=== PATIENT | female | born 1975 | race Caucasian/White ===

== ENCOUNTER 2021-05-19 20:35 | Emergency (ER) | payer OTHER ==
[2021-05-19 20:55] VITALS: BP 129/77; PULSE 78; TEMP 98.8; BMI 27.3
[2021-05-19] MEDS ORDERED: IBUPROFEN 600 MG TABLET (FP) PO ONE ×2 (21:24→21:28)
== END 2021-05-19 21:38 | disposition home or self-care (01) ==
LOC: FER 20:35
DX: L03.011 Cellulitis of right finger (principal)
CPT/HCPCS: 99283-25